=== PATIENT | male | born 1995 | race Two or more races ===

== ENCOUNTER 2023-11-19 09:39 | Emergency (ER) | payer MEDICAID, OTHER ==
[~2023-11-19] VITALS: Ht 172.7 cm; Wt 88.6 kg
[2023-11-19 09:48] VITALS: BP 141/76; PULSE 89; RESP 16; TEMP 97.8; O2SAT 99
== END 2023-11-19 10:39 | disposition home or self-care (01) ==
LOC: ER 09:40
DX: S61.211D Laceration without foreign body of left index finger without damage to nail, subsequent encounter (principal); X58.XXXD Exposure to other specified factors, subsequent encounter
CPT/HCPCS: 99281